=== PATIENT | male | born 1960 | race Two or more races ===

== ENCOUNTER 2021-06-12 04:25 | Emergency (ER) | payer OTHER ==
[~2021-06-12] VITALS: Ht 172.7 cm; Wt 83.5 kg
[~2021-06-12 04:25] MED LIST: CATAFLAM50 MG PO; NORFLEX
[2021-06-12] MEDS ORDERED: XARELTO20 MG (04:37)
== END 2021-06-12 12:13 | disposition home or self-care (01) ==
LOC: ER 04:25
DX: M79.605 Pain in left leg (principal); I82.402 Acute embolism and thrombosis of unspecified deep veins of left lower extremity

== ENCOUNTER 2021-08-31 09:00 | Outpatient (CLI) | payer OTHER ==
[~2021-08-31 09:00] MED LIST changes: +XARELTO20 MG
== END 2021-08-31 09:15 | disposition home or self-care (01) ==
LOC: PPH VACUNA 09:00
PROVIDERS: ATTEND Emergency Medicine Pediatric Emergency Medicine
DX: Z23 Encounter for immunization (principal)

== ENCOUNTER 2021-10-15 23:39 | Emergency (ER) | payer OTHER ==
[~2021-10-15] VITALS: Ht 172.7 cm; Wt 78.9 kg
== END 2021-10-16 11:15 | disposition home or self-care (01) ==
LOC: ER 23:39
DX: I87.2 Venous insufficiency (chronic) (peripheral) (principal); M79.605 Pain in left leg

== ENCOUNTER 2023-07-03 22:32 | Emergency (ER) | payer OTHER ==
[~2023-07-03] VITALS: Ht 167.6 cm; Wt 72.6 kg
== END 2023-07-04 01:21 | disposition home or self-care (01) ==
LOC: ER 22:32
DX: U07.1 COVID-19 (principal); S30.871A Other superficial bite of abdominal wall, initial encounter; W54.0XXA Bitten by dog, initial encounter; Y93.89 Activity, other specified; Y92.480 Sidewalk as the place of occurrence of the external cause
CPT/HCPCS: 96372; 99284; J0696